=== PATIENT | female | born 1970 | race Caucasian/White ===

== ENCOUNTER 2016-08-27 15:45 | Emergency (ER) | payer OTHER ==
[~2016-08-27] VITALS: Ht 160 cm; Wt 79.0 kg
[2016-08-27 15:49] VITALS: Ht 160 cm; Wt 79.0 kg
[2016-08-27] MEDS ORDERED: IBUP-1542 PO (16:43)
--- NOTE | 2016-08-27 18:15 | RADRPT ---
PROCEDURE: XR bilateral hands. CLINICAL INDICATION: Bilateral hand pain. TECHNIQUE: AP, oblique and lateral views of the bilateral hands. COMPARISON: No prior studies are available for comparison. FINDINGS: Right hand: No acute fracture dislocation. Soft tissues unremarkable. Left hand: Nondisplaced fracture of the tuft of the left index finger. Soft tissues otherwise unre markable. IMPRESSION: 1. No acute fracture in the right hand. 2. Nondisplaced fracture of the tuft of the left index finger. RPTAT: [facility] Physician Lucio Date Time Electronically viewed and signed by Physician Lucio on 08/27/2016 18:15 RS/
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
== END 2016-08-27 17:51 | disposition home or self-care (01) ==
LOC: E/R 15:45
DX: S62.631A Displaced fracture of distal phalanx of left index finger, initial encounter for closed fracture (principal); W50.3XXA Accidental bite by another person, initial encounter; Y92.239 Unspecified place in hospital as the place of occurrence of the external cause
CPT/HCPCS: 73130